=== PATIENT | female | born 1990 | race Caucasian/White ===

== ENCOUNTER 2019-05-13 13:15 | Inpatient (IN) | payer OTHER ==
[2019-05-13 14:00] VITALS: BMI 32.5
[2019-05-13] MEDS ORDERED: Misoprostol 200 MCG TAB PR PRN (14:10)
[2019-05-13] MEDS ORDERED: Promethazine HCl 25 MG/ML VIAL IM PRN ×2 (14:10→20:16)
[2019-05-13] MEDS ORDERED: Ibuprofen 800 MG TAB PO PRN (14:10)
[2019-05-13] MEDS ORDERED: Ondansetron PF 4 MG/2 ML Vial IVP PRN ×2 (14:10→20:16)
[2019-05-13] MEDS ORDERED: Lactated Ringer's 1,000 ML IV PRN (14:10)
[2019-05-13] MEDS ORDERED: HYDROcodone/Acetaminophen 5/325 mg Tablet PO PRN ×2 (14:10)
[2019-05-13] MEDS ORDERED: hydrALAZINE 20 MG/ML VIAL SLOW IVP PRN (14:10)
[2019-05-13] MEDS ORDERED: Lidocaine 1% (PF) 30 ML VIAL SC PRN (14:10)
[2019-05-13] MEDS ORDERED: Methylergonovine 0.2 MG/ML VIAL IM PRN (14:10)
[2019-05-13] MEDS ORDERED: Ondansetron PF 4 MG/2 ML Vial ONE (14:38)
[2019-05-13 15:14] LABS: Hemoglobin 12.8 g/dL (12.0-16.0); Mean Corpuscular HGB CONC 33.6 g/dL (32.0-36.0); Mean Corpuscular Hemoglobin 30.9 pg (27.0-31.0); Mean Corpuscular Volume 91.9 fL (78.0-98.0); Mean Platelet Volume 10.2 fL (7.4-10.4); Platelet Count 192 thou/uL (130-400); Red Blood Cell (RBC) Count 4.15 mill/uL (4.20-5.40)
[2019-05-13 15:56] LABS: Syphilis Antibody Nonreactive (Nonreactive); Syphilis Antibody Index 0.04 S/CO (<1.00 Non-Reactive)
[2019-05-13 16:32] LABS: HBSAg Index 0.19 S/CO (0-0.99); Hep B Surf Ag Non-Reactive S/CO (NonReactive)
--- NOTE | 2019-05-13 17:14 | PDOC.LDHP ---
Labor and Delivery H&P Chief complaint: contractions, loss of fluid HPI: Water broke this morning during exam in office. She had started contractiong at home at 0130. After exam the ctx started gettign strogn and close together. Current gestational age (weeks): 40 Dating criteria: last menstrual period Grav: 1 Para: 0 Current complications: gestational diabetes (Diet controllled) Abnormal US findings: No Current medications: pre-solomon vitamins Previous surgical history: cholecystectomy Allergies/Adverse Reactions: Allergies Allergy/AdvReac Type Severity Reaction Status Date / Time Penicillins Allergy Verified 05/13/19 13:53 Social history: none - Physical Exam Vital signs reviewed and normal: yes General: breathing through contractions Lungs: CTAB Abdomen: NTTP Extremeties: no edema FHT: category 1 - Vaginal Exam cm dilated: 6 Effacement: 100% Station: -2 - OB Labs Blood type: A RH: positive Antibody Screen: negative HIV: negative RPR: negative HEPSAg: negative 1 hour GCT: negative GBS: negative Urine drug screen: negative Rubella: immune - Assessment L&D Assessment: term patient in labor
[2019-05-13] MEDS: Dextrose 5%-Lactated Ringers 1,000 ML IV SCH (17:50)
[2019-05-13] MEDS ORDERED: Fentanyl 4 mcg/Bup 0.1% Cadd 100 ML ONE (19:40)
[2019-05-13] MEDS ORDERED: Acetaminophen 325 MG TAB PO PRN (20:16)
[2019-05-13] MEDS ORDERED: ePHEDrine/0.9% NaCl/PF SYRINGE 50 mg/10 ml SLOW IVP PRN (20:16)
[2019-05-13] MEDS ORDERED: diphenhydrAMINE 50 MG/ML VIAL IVP PRN (20:16)
[2019-05-13] MEDS ORDERED: Naloxone HCl 0.4 mg/ml Vial IVP PRN ×2 (20:16)
[2019-05-13] MEDS ORDERED: Lactated Ringer's 500 ML IV PRN (20:16)
[2019-05-13] MEDS ORDERED: Fentanyl 4 mcg/Bupivacaine 0.1% Cassette 100 ML EPIDURAL SCH (20:30)
[2019-05-13] MEDS ORDERED: Communication Order-Pharmacy FS SCH (20:30)
[2019-05-13] MEDS ORDERED: NS w/ Oxytocin 10 units 500 ML IVPB SCH (21:15)
[2019-05-14] MEDS: NS / Oxytocin 40 units/1000ml 1,000 ML IV PRN ×2 (03:15→05:00)
[2019-05-14] MEDS ORDERED: Misoprostol 200 MCG TAB ONE (03:32)
[2019-05-14] MEDS ORDERED: CEFAZOLIN 2 GM in Premix Bag 1 BAG IVPB SCH (03:33)
--- NOTE | 2019-05-14 03:54 | PDOC.OPDEL ---
OB Operative/Delivery Note Delivery Dr/Surgeon: Kiera Gallardo Pre-Delivery Diagnosis: active labor Procedure/Post Delivery Dx: spontaneous vaginal delivery Anesthesia: epidural - Findings A Sex: male Weight: 9 lb 4 oz - 1 min: 8 - 5 min: 9 - Additional Findings/Plan Placenta delivered: manual removal Estimated blood loss: 175mL Compilations/Other Findings: reatained placenta at 30 mintuse. manual removal. placenta to pathology. Ancef 2gm given Post delivery plan: routine recovery
[2019-05-14] MEDS ORDERED: Methylergonovine 0.2 MG/ML VIAL IM PRN (05:32)
[2019-05-14] MEDS ORDERED: NS / Oxytocin 40 units/1000ml 1,000 ML IV SCH (05:32)
[2019-05-14] MEDS ORDERED: Ondansetron PF 4 MG/2 ML Vial IVP PRN (05:32)
[2019-05-14] MEDS ORDERED: Milk Of Magnesia 30 ML UDCUP PO PRN (05:32)
[2019-05-14] MEDS ORDERED: hydrALAZINE 20 MG/ML VIAL SLOW IVP PRN (05:32)
[2019-05-14] MEDS ORDERED: Bisacodyl 10 MG SUPP PR PRN (05:32)
[2019-05-14] MEDS ORDERED: Benzocaine-Menthol 82.5 ML CAN TOP PRN (05:32)
[2019-05-14] MEDS ORDERED: HYDROcodone/Acetaminophen 5/325 mg Tablet PO PRN ×2 (05:32)
[2019-05-14] MEDS: Dextrose 5%-Lactated Ringers 1,000 ML IV SCH (06:21)
[2019-05-14] MEDS: Ibuprofen 800 MG TAB PO SCH ×2 (06:24→14:56)
[2019-05-14] MEDS ORDERED: Adacel (T-DAP) 0.5 ML SYRINGE IM ONE (09:00)
[2019-05-14] MEDS: Ferrous Sulfate 325 MG TAB PO SCH ×2 (09:02→21:36)
[2019-05-14] MEDS: Prenatal Vitamin 1 TAB PO SCH (09:24)
[2019-05-14] MEDS: Docusate Calcium (SURFAK) 240 MG CAP PO SCH ×2 (09:25→22:08)
[2019-05-15] MEDS: Ibuprofen 800 MG TAB PO SCH ×4 (00:49→21:05)
[2019-05-15] MEDS: Docusate Calcium (SURFAK) 240 MG CAP PO SCH ×2 (08:19→21:05)
[2019-05-15] MEDS: Prenatal Vitamin 1 TAB PO SCH (08:19)
[2019-05-15] MEDS: Ferrous Sulfate 325 MG TAB PO SCH ×2 (08:19→16:20)
[2019-05-15] MEDS ORDERED: Lanolin Ointment 7 GM TUBE TOP PRN (09:29)
[2019-05-16] MEDS: Ibuprofen 800 MG TAB PO SCH ×3 (05:29→21:05)
[2019-05-16] MEDS: Prenatal Vitamin 1 TAB PO SCH (09:00)
[2019-05-16] MEDS: Docusate Calcium (SURFAK) 240 MG CAP PO SCH ×2 (09:00→19:37)
[2019-05-16] MEDS: Ferrous Sulfate 325 MG TAB PO SCH ×2 (09:00→17:26)
--- NOTE | 2019-05-16 11:20 | PDOC.EVN ---
Event Note - Event Note Event Note: OBGYN: 1120 Called by RN for persistent systolic BP elevations of 160-170s. No sxs reported. I have asked Dr longo (our resident to see her at bedside). We will: 1. Draw PIH labs 2. Start Labetolol 100mg po BID
[2019-05-16] MEDS ORDERED: Labetalol 100 MG TAB PO SCH ×2 (11:25→21:00)
[2019-05-16 11:48] LABS: #Eosinphils 0.1 thou/uL (0.0-0.7); #Lymphocytes 1.5 thou/uL (1.20-3.40); #Monocytes 0.4 thou/uL (0.11-0.59); #Neutrophils 5.9 thou/uL (1.40-6.50); %Basophils 0.3 % (0.0-1.0); %Eosinophils 0.8 % (0.0-10.0); %Lymphocytes 19.6 % (21.0-51.0); %Monocytes 4.6 % (0.0-10.0); %Neutrophils 74.7 % (42.0-75.0); Hemoglobin 11.8 g/dL (12.0-16.0); Mean Corpuscular HGB CONC 34.7 g/dL (32.0-36.0); Mean Corpuscular Hemoglobin 32.5 pg (27.0-31.0); Mean Corpuscular Volume 93.5 fL (78.0-98.0); Mean Platelet Volume 8.4 fL (7.4-10.4); Platelet Count 223 thou/uL (130-400); RBC Distribution Width 12.2 % (11.5-14.5); Red Blood Cell (RBC) Count 3.64 mill/uL (4.20-5.40); White Blood Cell (WBC) Count 7.9 thou/uL (4.8-10.8)
[2019-05-16 12:09] LABS: ALT (SGPT) 16 U/L (8-55); AST (SGOT) 46 U/L (5-34); Albumin 3.4 g/dL (3.5-5.0); Alkaline Phosphatase 153 U/L (40-110); Anion Gap 11 mmol/L (10-20); BUN (Urea Nitrogen) 7 mg/dL (7.0-18.7); Bilirubin, Total 0.2 mg/dL (0.2-1.2); Calc. Creatinine Clearance 174 mL/min (70-130); Calcium 9.6 mg/dL (7.8-10.44); Carbon Dioxide 28 mmol/L (22-29); Chloride 106 mmol/L (98-107); Estimated GFR-MDRD Greater than 90; Glucose 86 mg/dL (70-105); Potassium 4.3 mmol/L (3.5-5.1); Protein, Total 6.4 g/dL (6.0-8.3); Sodium 141 mmol/L (136-145)
--- NOTE | 2019-05-16 13:02 | PDOC.BPN ---
- Brief Progress Note Assess patient at bedside Denies FALCON, vision changes, RUQ pain Physical exam unremarkable Discussed plan with patient- pending labs. Starting anithypertensive, labetalol 100mg po BID Will keep another day to continue monitoring Pt in agreement Discussed plan with nursing Discussed plan with Dr. Rowe
--- NOTE | 2019-05-16 14:24 | PDOC.EVN ---
Event Note - Event Note Event Note: Patient seen at bedside by ASX BP 160/77 I discussed Lasix po. As BP still elevated 1 hr after first dose labetolol at 100mg...we will give one dose lasix
--- NOTE | 2019-05-16 14:28 | PDOC.EVN ---
Event Note - Event Note Event Note: Lab check: CMP seen and CBC...ok
[2019-05-16] MEDS ORDERED: Furosemide 20 MG TAB PO SCH (14:30)
--- NOTE | 2019-05-16 17:27 | PDOC.EVN ---
Event Note - Event Note Event Note: BP check...noted
--- NOTE | 2019-05-16 18:42 | PDOC.EVN ---
Event Note - Event Note Event Note: BP still 168/90s I will increase labetolol to 200mg po BID Communicated with RN
--- NOTE | 2019-05-16 18:45 | PDOC.EVN ---
Event Note - Event Note Event Note: Hypotension noted with tachycardia...but not from bleeding etiology. I believe this is from the illness itself. IVFs in use...we cant use pressers due to uterine effect. BP 160/50 but patient is A&O Follow closely
[2019-05-16] MEDS: Labetalol 100 MG TAB PO SCH (19:37)
[2019-05-17] MEDS: Ibuprofen 800 MG TAB PO SCH (05:48)
[2019-05-17] MEDS: Ferrous Sulfate 325 MG TAB PO SCH (07:20)
[2019-05-17 08:41] VITALS: BP 142/68; TEMP 96.9
[2019-05-17] MEDS: Prenatal Vitamin 1 TAB PO SCH (09:31)
[2019-05-17] MEDS: Docusate Calcium (SURFAK) 240 MG CAP PO SCH (09:31)
[2019-05-17] MEDS: Labetalol 100 MG TAB PO SCH (09:31)
== END 2019-05-17 12:32 | disposition home or self-care (01) | DRG 806 ==
LOC: L&D/OP 13:15 → L&D 19:59 → 3SW 05-14 06:14
PROVIDERS: ADMIT Obstetrics & Gynecology; ATTEND Obstetrics & Gynecology
PROC: 10907ZC Drainage of Amniotic Fluid, Therapeutic from Products of Conception, Via Natural or Artificial Opening (ICD-10-PCS; 2019-05-13)
PROC: 10E0XZZ Delivery of Products of Conception, External Approach (ICD-10-PCS; principal; 2019-05-14)
PROC: 10D17Z9 Manual Extraction of Products of Conception, Retained, Via Natural or Artificial Opening (ICD-10-PCS; 2019-05-14)
DX: O24.420 Gestational diabetes mellitus in childbirth, diet controlled (principal); O99.43 Diseases of the circulatory system complicating the puerperium; Z37.0 Single live birth; O72.0 Third-stage hemorrhage; Z3A.40 40 weeks gestation of pregnancy; Z88.0 Allergy status to penicillin; Z90.49 Acquired absence of other specified parts of digestive tract; O77.0 Labor and delivery complicated by meconium in amniotic fluid; I95.9 Hypotension, unspecified; R00.0 Tachycardia, unspecified
CPT/HCPCS: 36415; 51702; 80053; 85025; 85027; 86780; 86850; 86900; 86901; 87340; 88307; J0690; J1200; J2405; J2590